=== PATIENT | female | born 1970 | race Caucasian/White ===

== ENCOUNTER 2017-07-23 13:37 | Emergency (ER) | payer MEDICARE, OTHER ==
[~2017-07-23] VITALS: Ht 167.6 cm; Wt 84.0 kg
[~2017-07-23 13:37] MED LIST: SUCR1ORA2 PO
[2017-07-23 15:35] LABS: BASOPHILS % (AUTO) 0.6 % (0-1); EOSINOPHILS # (AUTO) 0.1 X10'3 (0-0.9); HEMATOCRIT 26.6 % (35.0-45.0); HEMOGLOBIN 8.4 g/dl (12.0-16.0); MEAN CORPUSCULAR HEMOGLOBIN 20.2 PG (27.0-31.0); MEAN CORPUSCULAR HGB CONC 31.5 % (33.0-36.5); MEAN CORPUSCULAR VOLUME 64.2 FL (78-98); MEAN PLATELET VOLUME 7.4 FL (7.4-10.4); MONOCYTES # (AUTO) 0.3 X10'3 (0-0.9); MONOCYTES % (AUTO) 4.7 % (2-12); NEUTROPHILS % (AUTO) 55.7 % (42-75); PLATELET COUNT 524 X10'3 (140-440); RED BLOOD COUNT 4.15 X10'6 (4.20-5.60); RED CELL DISTRIBUTION WIDTH 21.2 % (11.5-14.5); WHITE BLOOD COUNT 5.3 X10'3 (4.5-11.0)
[2017-07-23 15:53] LABS: ALANINE AMINOTRANSFERASE 17 U/L (12-78); ALBUMIN 3.3 G/DL (3.4-5.0); ALBUMIN/GLOBULIN RATIO 0.8 (1.1-1.5); ALKALINE PHOSPHATASE 47 IU/L (46-116); ANION GAP 12 (8-16); ASPARTATE AMINO TRANSFERASE 14 U/L (10-37); BILIRUBIN,TOTAL 0.2 MG/DL (0.1-1.0); BLOOD UREA NITROGEN 19 MG/DL (7-18); BUN/CREATININE RATIO 21.6 (6.6-38.0); CALCIUM 8.7 MG/DL (8.5-10.1); CHLORIDE 110 MMOL/L (99-107); CREATININE 0.88 MG/DL (0.40-0.90); GLUCOSE 81 MG/DL (70-104); POTASSIUM 3.7 MMOL/L (3.5-5.1); SODIUM 146 MMOL/L (135-145); TOTAL CARBON DIOXIDE 23.8 MMOL/L (24-32); TOTAL PROTEIN 7.2 G/DL (6.4-8.2); eGFR 69 ML/MIN
[2017-07-23 16:31] LABS: ANISOCYTOSIS 3+; MICROCYTOSIS 2+
[2017-07-23 16:33] LABS: ELLIPTOCYTES 1+; HYPOCHROMASIA 2+; SCHISTOCYTES FEW; TARGET CELLS 1+; TEAR DROP CELLS FEW
[2017-07-23] MEDS ORDERED: morphine 4 MG/ML inj SYRINge IV ONE ×2 (16:40→16:55)
[2017-07-23 16:44] LABS: PLATELET ESTIMATE INCREASED
[2017-07-23] MEDS ORDERED: ondansetron/PF 4mg/2ml inj IV ONE (16:55)
[2017-07-23 16:58] LABS: LIPASE 171 U/L (73-393)
[2017-07-23] MEDS ORDERED: iohexol 300mg/ml 100ml inj. ONE (17:00)
[2017-07-23 19:56] VITALS: BP 157/85
[2017-07-23] MEDS ORDERED: OXYC-150 PO (20:01)
== END 2017-07-23 20:12 | disposition home or self-care (01) ==
LOC: ER 13:38
DX: D64.9 Anemia, unspecified (principal); R10.32 Left lower quadrant pain; G89.29 Other chronic pain; Z90.49 Acquired absence of other specified parts of digestive tract; Z98.84 Bariatric surgery status; Z88.1 Allergy status to other antibiotic agents; Z79.899 Other long term (current) drug therapy
CPT/HCPCS: 36415; 74177; 80053; 83605; 83690; 85025; 93005; 96374; 96375; 99285; J2270; J2405; Q9967; 84439; 84443

== ENCOUNTER 2018-09-17 18:42 | Inpatient (IN) | payer BC ==
[~2018-09-17] VITALS: Ht 167.6 cm; Wt 68.0 kg
[~2018-09-17 18:42] MED LIST changes: +OXYC-150 PO
[2018-09-17] MEDS ORDERED: normal saline 1000ML IV soln IVB ONE (20:20)
[2018-09-17] MEDS ORDERED: ondansetron/PF 4mg/2ml inj IV ONE (20:20)
[2018-09-17] MEDS ORDERED: piperacillin/tazo 3.375gm/50ml 50 ML IV ONE (20:20)
[2018-09-17] MEDS ORDERED: vancomycin/NS 1 GM ADD-VANTAGE 250 ML IV ONE (20:20)
[2018-09-17] MEDS: morphine 4 MG/ML inj SYRINge IV PRN ×2 (20:45→21:56)
[2018-09-17 20:46] LABS: BASOPHILS % (AUTO) 0.4 % (0-1); EOSINOPHILS # (AUTO) 0.2 X10'3 (0-0.9); EOSINOPHILS % (AUTO) 1.3 % (0-6); HEMOGLOBIN 12.2 g/dl (12.0-16.0); LYMPHOCYTES # (AUTO) 1.1 X10'3 (1.1-4.8); LYMPHOCYTES % (AUTO) 8.6 % (21-51); MEAN CORPUSCULAR HEMOGLOBIN 29.5 PG (27.0-31.0); MEAN CORPUSCULAR VOLUME 89.5 FL (78-98); MEAN PLATELET VOLUME 6.9 FL (7.4-10.4); MONOCYTES % (AUTO) 7.8 % (2-12); NEUTROPHILS # (AUTO) 10.8 X10'3 (1.8-7.7); NEUTROPHILS % (AUTO) 81.9 % (42-75); PLATELET COUNT 321 X10'3 (140-440); RED BLOOD COUNT 4.13 X10'6 (4.20-5.60); RED CELL DISTRIBUTION WIDTH 14.4 % (11.5-14.5); WHITE BLOOD COUNT 13.2 X10'3 (4.5-11.0)
[2018-09-17] MEDS ORDERED: diphenhydrAMINE 50 mg/ml inj IV ONE (20:55)
[2018-09-17 20:56] LABS: ALANINE AMINOTRANSFERASE 43 U/L (12-78); ALBUMIN 2.9 G/DL (3.4-5.0); ALBUMIN/GLOBULIN RATIO 0.7 (1.1-1.5); ALKALINE PHOSPHATASE 54 IU/L (46-116); ANION GAP 6 (8-16); ASPARTATE AMINO TRANSFERASE 27 U/L (10-37); BILIRUBIN,TOTAL 0.2 MG/DL (0.1-1.0); BLOOD UREA NITROGEN 14 MG/DL (7-18); BUN/CREATININE RATIO 18.7 (6.6-38.0); CALCIUM 8.8 MG/DL (8.5-10.1); CHLORIDE 105 MMOL/L (99-107); CREATININE 0.75 MG/DL (0.40-0.90); GLUCOSE 111 MG/DL (70-104); POTASSIUM 3.9 MMOL/L (3.5-5.1); SODIUM 139 MMOL/L (135-145); TOTAL CARBON DIOXIDE 28.2 MMOL/L (24-32); TOTAL PROTEIN 7.1 G/DL (6.4-8.2); eGFR 82 ML/MIN
[2018-09-17 21:36] LABS: CLARITY,URINE CLEAR (Clear); COLOR,URINE YELLOW (Yellow); GLUCOSE, URINE NEGATIVE (Neg); KETONES,URINE NEGATIVE (Neg); LEUKOCYTE ESTERASE ,URINE NEGATIVE (Neg); NITRITES, URINE NEGATIVE (Neg); OCCULT BLOOD,URINE NEGATIVE (Neg); PH,URINE 6.5 (4.8-8.0); PROTEIN,URINE TRACE mg/dl (Neg)
[2018-09-17] MEDS ORDERED: HYDROcodone/acetaminophen 5mg/325mg tablet PO PRN (21:40)
[2018-09-17] MEDS ORDERED: magnesium 2GM in 50ml NS 50 ML IV PRN (21:40)
[2018-09-17] MEDS ORDERED: potassium CL 10mEq/100ml bag 100 ML IV PRN (21:40)
[2018-09-17] MEDS ORDERED: morphine 2 MG/ML inj. syringe IV PRN ×2 (21:40)
[2018-09-17] MEDS ORDERED: magnesium 4gm in 100ml NS 100 ML IV PRN (21:40)
[2018-09-17] MEDS ORDERED: potassium Cl 20 mEq SR tablet PO PRN ×2 (21:40)
[2018-09-17] MEDS ORDERED: acetaminophen 325mg tablet PO PRN ×2 (21:40)
[2018-09-17] MEDS ORDERED: magnesium hydroxide 30ml (MOM) UD suspension PO PRN (21:40)
[2018-09-17] MEDS ORDERED: ondansetron/PF 4mg/2ml inj IV PRN (21:40)
[2018-09-17] MEDS ORDERED: potassium Cl 40MEQ/NS 500ml 500 ML IV PRN (21:40)
[2018-09-17] MEDS ORDERED: normal saline 1000ml 1,000 ML IV ONE (21:40)
[2018-09-17] MEDS ORDERED: magnesium Cl slow-release 64mg tablet PO PRN (21:40)
[2018-09-17] MEDS ORDERED: mag hydrox/Alum hydrox/simeth 30ml oral suspension PO PRN (21:40)
[2018-09-17 21:42] LABS: UA COLLECTION TYPE CLN CATCH MIDSTREAM
[2018-09-17 21:43] LABS: BACTERIA,URINE FEW /HPF (Neg); MUCUS STRANDS FEW /LPF (Neg); RBC,URINE 0-2 /HPF (0-2); SQUAMOUS EPITHELIAL CELL,UR FEW /LPF (FEW)
--- NOTE | 2018-09-17 22:52 | NUR ---
Received report from GARRY Crocker from ER, pending arrival to floor.
[2018-09-17] MEDS ORDERED: GABA-530 PO (22:58)
[2018-09-17] MEDS ORDERED: CLON0.2T2 (23:21)
[2018-09-17] MEDS ORDERED: NABU750T2 PO (23:21)
[2018-09-17] MEDS ORDERED: ESCI20TA38 (23:21)
[2018-09-17] MEDS ORDERED: CLIN300C56 (23:21)
[2018-09-17] MEDS ORDERED: HYDR-3973 (23:21)
[2018-09-17] MEDS ORDERED: GABA800T11 PO (23:21)
[2018-09-17 23:57] VITALS: BP 140/82
--- NOTE | 2018-09-18 00:35 | NUR ---
As I was talking to patient about her past medical history. I observed patient picking at her knee with tweezers where her cellulitis is currently at. Patient says she has salt coming out of her skin. Patient has multiple pick [place] all over body. I educated patient about germs and using the tweezers she has could be the source of her infection and germ getting assess to her skin causing her infection and her tweezers may be clean but they are not sterile and she should not use them to pick her knee. As I was walking away I noted to witness her continued to pick at her knee. Informed MD as he walked by her room. He said he was aware of her doing this.
[2018-09-18] MEDS: piperacillin/tazo 3.375gm/50ml 50 ML IV SCH ×3 (03:29→20:37)
[2018-09-18] MEDS: HYDROcodone/acetaminophen 10/325mg tab PO PRN ×5 (04:56→20:34)
[2018-09-18 06:00] VITALS: BP 111/69
[2018-09-18 06:14] LABS: BASOPHILS % (AUTO) 0.4 % (0-1); EOSINOPHILS # (AUTO) 0.2 X10'3 (0-0.9); EOSINOPHILS % (AUTO) 2.2 % (0-6); HEMATOCRIT 33.5 % (35.0-45.0); HEMOGLOBIN 11.2 g/dl (12.0-16.0); LYMPHOCYTES # (AUTO) 1.5 X10'3 (1.1-4.8); LYMPHOCYTES % (AUTO) 14.5 % (21-51); MEAN CORPUSCULAR HEMOGLOBIN 29.7 PG (27.0-31.0); MEAN CORPUSCULAR HGB CONC 33.4 g/dL (33.0-36.5); MEAN CORPUSCULAR VOLUME 88.8 FL (78-98); MEAN PLATELET VOLUME 7.1 FL (7.4-10.4); MONOCYTES # (AUTO) 0.8 X10'3 (0-0.9); MONOCYTES % (AUTO) 7.7 % (2-12); NEUTROPHILS # (AUTO) 7.9 X10'3 (1.8-7.7); NEUTROPHILS % (AUTO) 75.2 % (42-75); PLATELET COUNT 305 X10'3 (140-440); RED BLOOD COUNT 3.77 X10'6 (4.20-5.60); RED CELL DISTRIBUTION WIDTH 14.4 % (11.5-14.5); WHITE BLOOD COUNT 10.5 X10'3 (4.5-11.0)
[2018-09-18 06:28] LABS: ALBUMIN 2.3 G/DL (3.4-5.0); ANION GAP 6 (8-16); BLOOD UREA NITROGEN 9 MG/DL (7-18); BUN/CREATININE RATIO 13.4 (6.6-38.0); CALCIUM 8.4 MG/DL (8.5-10.1); CHLORIDE 108 MMOL/L (99-107); CREATININE 0.67 MG/DL (0.40-0.90); GLUCOSE 89 MG/DL (70-104); MAGNESIUM 1.9 MG/DL (1.5-2.4); SODIUM 140 MMOL/L (135-145); TOTAL CARBON DIOXIDE 26.5 MMOL/L (24-32); eGFR > 90 ML/MIN
--- NOTE | 2018-09-18 06:31 | NUR ---
Problems reprioritized. Patient report given, questions answered & plan of care reviewed with GARRY Faye.
--- NOTE | 2018-09-18 06:42 | NUR ---
Patient in room [facility]TH[facility] 4006. I have received report from Eva Sparrow RN and had the opportunity to ask questions and assume patient care.
[2018-09-18] MEDS ORDERED: vancomycin/NS 1 GM ADD-VANTAGE 250 ML IV SCH (08:00)
[2018-09-18] MEDS: K and/or MAG REPLACEMENT MC SCH (08:00)
[2018-09-18] MEDS: NABUMETONE PO SCH (08:00)
[2018-09-18] MEDS: gabapentin 400mg capsule PO SCH ×4 (08:58→20:33)
[2018-09-18] MEDS: enoxaparin 40mg/0.4ml syringe SQ SCH (08:59)
[2018-09-18] MEDS ORDERED: iohexol 300mg/ml 100ml inj. ONE (09:29)
[2018-09-18 10:00] VITALS: BP 118/68
--- NOTE | 2018-09-18 13:46 | NUR ---
Malnutrition consult: Pt seen at bedside with daughter listening via speaker on telephone. Pt states she hasn't had any wt loss that she's concerned about however states her family feels like she has lost a lot of weight. Daughter reports pt weighed around 180# sometime around February, current documented wt is 150# using chair scale. This is non-severe wt loss of 11% in 7 months if pt truly with wt loss. Pt reports UBW 150#. Pt documented with 100% PO intake at breakfast and eating a sandwich during RD visit. Pt reports usual meal pattern at home of 4-8 meals/day with 300 kcal each meal and reports a good appetite. Pt with LLE 3+ edema and with no visible fat or muscle wasting. Pt currently lacks a minimum of two qualifying criteria for malnutrition. Pt reports difficulty swallowing at times however denies BSS with [employer]. Pt reports seeing an ST 4 years ago with recommendations to take her time while eating. Pt with no visible difficulties eating during RD visit. Pt admit with cellulitis, written and verbal high protein education with RD contact information provided. Will continue to follow. Addendum: 09/18/18 at [address] Amended: Links added.
--- NOTE | 2018-09-18 15:58 | NUR ---
PAGER ID: [phone] MESSAGE: [phone] Robyn Cope. Patient very itchy, Can we order Benadryl? Patient is asking if doctor will see her today. Neyda [id number]
[2018-09-18] MEDS: diphenhydrAMINE 25mg capsule PO PRN (16:43)
[2018-09-18] MEDS: vancomycin/NS 1 GM ADD-VANTAGE 250 ML IV SCH (17:07)
[2018-09-18 18:00] VITALS: BP 156/75
--- NOTE | 2018-09-18 18:21 | NUR ---
Problems reprioritized. Patient report given, questions answered & plan of care reviewed with Presley CASTAÑEDA.
[2018-09-18] MEDS: lactobacillus rhamnosus 10,000 MMU CELLS/CAPSULE PO SCH (20:30)
[2018-09-18] MEDS ORDERED: LORazepam 0.5 MG tablet PO PRN (22:15)
[2018-09-19] VITALS (19 sets, daily range): BP systolic 121–147; BP diastolic 72–100
[2018-09-19] MEDS: vancomycin/NS 1 GM ADD-VANTAGE 250 ML IV SCH ×2 (01:08→10:03)
[2018-09-19] MEDS: HYDROcodone/acetaminophen 10/325mg tab PO PRN ×4 (01:09→20:10)
[2018-09-19] MEDS: piperacillin/tazo 3.375gm/50ml 50 ML IV SCH ×3 (05:52→20:11)
--- NOTE | 2018-09-19 06:10 | NUR ---
Patient in room [facility]TH[facility] 4006. I have received report from Presley CASTAÑEDA and had the opportunity to ask questions and assume patient care.
[2018-09-19 06:47] LABS: BASOPHILS # (AUTO) 0.1 X10'3 (0-0.2); BASOPHILS % (AUTO) 1.1 % (0-1); EOSINOPHILS # (AUTO) 0.3 X10'3 (0-0.9); HEMATOCRIT 35.8 % (35.0-45.0); LYMPHOCYTES # (AUTO) 1.6 X10'3 (1.1-4.8); LYMPHOCYTES % (AUTO) 16.9 % (21-51); MEAN CORPUSCULAR HEMOGLOBIN 29.6 PG (27.0-31.0); MEAN CORPUSCULAR HGB CONC 33.4 g/dL (33.0-36.5); MEAN CORPUSCULAR VOLUME 88.5 FL (78-98); MEAN PLATELET VOLUME 6.9 FL (7.4-10.4); MONOCYTES # (AUTO) 0.8 X10'3 (0-0.9); MONOCYTES % (AUTO) 8.7 % (2-12); NEUTROPHILS # (AUTO) 6.7 X10'3 (1.8-7.7); NEUTROPHILS % (AUTO) 70.3 % (42-75); PLATELET COUNT 335 X10'3 (140-440); RED BLOOD COUNT 4.05 X10'6 (4.20-5.60); RED CELL DISTRIBUTION WIDTH 14.3 % (11.5-14.5); WHITE BLOOD COUNT 9.5 X10'3 (4.5-11.0)
[2018-09-19 06:57] LABS: ALBUMIN 2.2 G/DL (3.4-5.0); ANION GAP 3 (8-16); BLOOD UREA NITROGEN 12 MG/DL (7-18); BUN/CREATININE RATIO 14.1 (6.6-38.0); CALCIUM 8.4 MG/DL (8.5-10.1); CHLORIDE 107 MMOL/L (99-107); CREATININE 0.85 MG/DL (0.40-0.90); GLUCOSE 91 MG/DL (70-104); MAGNESIUM 1.9 MG/DL (1.5-2.4); POTASSIUM 4.2 MMOL/L (3.5-5.1); SODIUM 139 MMOL/L (135-145); TOTAL CARBON DIOXIDE 29.1 MMOL/L (24-32); eGFR 71 ML/MIN
[2018-09-19] MEDS: NABUMETONE PO SCH (08:00)
[2018-09-19] MEDS: K and/or MAG REPLACEMENT MC SCH (08:00)
[2018-09-19] MEDS: enoxaparin 40mg/0.4ml syringe SQ SCH (08:00)
[2018-09-19] MEDS ORDERED: VANCOMYCIN LEVEL IV ONE (08:30)
[2018-09-19] MEDS: lactobacillus rhamnosus 10,000 MMU CELLS/CAPSULE PO SCH ×2 (08:47→20:09)
[2018-09-19] MEDS: gabapentin 400mg capsule PO SCH ×4 (08:47→20:09)
[2018-09-19] MEDS ORDERED: sevoflurane 250ml liquid IH ONE (15:15)
[2018-09-19] MEDS ORDERED: ringers solution, lacted 1,000 ML IV SCH (15:21)
[2018-09-19] MEDS ORDERED: ondansetron/PF 4mg/2ml inj IV PRN (15:25)
[2018-09-19] MEDS ORDERED: morphine 4 MG/ML inj SYRINge IV PRN (15:25)
[2018-09-19] MEDS ORDERED: proCHLORperazine 10 MG/2 ml inj IV PRN (15:25)
[2018-09-19] MEDS ORDERED: meperidine/PF 25mg/ml syringe IV PRN ×3 (15:25)
[2018-09-19] MEDS ORDERED: fentaNYL/PF 50MCG/1 ML 2ML syringe ONE (15:30)
[2018-09-19] MEDS ORDERED: midazolam 2 mg/2 ml injection ONE (15:37)
[2018-09-19] MEDS ORDERED: propofol inj 20 ML IV ONE (15:41)
--- NOTE | 2018-09-19 16:10 | NUR ---
Received from OR via bed, accompanied by Anesthesiologist. Report received. Initial physical assessment done and recorded. LMA in on arrival, removed within [address] Cheung in attendance.
[2018-09-19] MEDS: morphine 4 MG/ML inj SYRINge IV PRN (16:29)
[2018-09-19] MEDS ORDERED: HYDROcodone/acetaminophen 10/325mg tab PO ONE (16:40)
--- NOTE | 2018-09-19 17:20 | NUR ---
Discharge criteria met, report to receiving floor. Transferred to room in stable condition.
[2018-09-19] MEDS: diphenhydrAMINE 25mg capsule PO PRN (17:36)
[2018-09-19] MEDS: VANCOmycin 1250MG/NS 250ml Bag 250 ML IV SCH (18:07)
--- NOTE | 2018-09-19 18:30 | NUR ---
Patient in room [facility]TH[facility] 4006. I have received report from Neyda CASTAÑEDA and had the opportunity to ask questions and assume patient care.
--- NOTE | 2018-09-19 18:49 | NUR ---
Problems reprioritized. Patient report given, questions answered & plan of care reviewed with Lazara CASTAÑEDA.
[2018-09-19] MEDS ORDERED: nicotine prolacrilex 2mg gum BC PRN (22:35)
[2018-09-20] MEDS: VANCOmycin 1250MG/NS 250ml Bag 250 ML IV SCH ×2 (01:14→09:59)
[2018-09-20 02:00] VITALS: BP 128/78
[2018-09-20] MEDS: HYDROcodone/acetaminophen 10/325mg tab PO PRN ×2 (02:30→08:08)
[2018-09-20] MEDS: piperacillin/tazo 3.375gm/50ml 50 ML IV SCH ×2 (03:28→13:08)
[2018-09-20 07:14] LABS: ALBUMIN 2.3 G/DL (3.4-5.0); ANION GAP 5 (8-16); BLOOD UREA NITROGEN 11 MG/DL (7-18); BUN/CREATININE RATIO 17.7 (6.6-38.0); CALCIUM 8.1 MG/DL (8.5-10.1); CHLORIDE 105 MMOL/L (99-107); CREATININE 0.62 MG/DL (0.40-0.90); GLUCOSE 81 MG/DL (70-104); MAGNESIUM 1.8 MG/DL (1.5-2.4); POTASSIUM 3.8 MMOL/L (3.5-5.1); SODIUM 139 MMOL/L (135-145); TOTAL CARBON DIOXIDE 29.1 MMOL/L (24-32); eGFR > 90 ML/MIN
[2018-09-20 07:18] LABS: BASOPHILS # (AUTO) 0.1 X10'3 (0-0.2); BASOPHILS % (AUTO) 0.7 % (0-1); EOSINOPHILS # (AUTO) 0.3 X10'3 (0-0.9); EOSINOPHILS % (AUTO) 3.6 % (0-6); HEMATOCRIT 34.9 % (35.0-45.0); HEMOGLOBIN 11.7 g/dl (12.0-16.0); LYMPHOCYTES # (AUTO) 1.3 X10'3 (1.1-4.8); LYMPHOCYTES % (AUTO) 16.1 % (21-51); MEAN CORPUSCULAR HEMOGLOBIN 29.8 PG (27.0-31.0); MEAN CORPUSCULAR HGB CONC 33.5 g/dL (33.0-36.5); MONOCYTES # (AUTO) 0.7 X10'3 (0-0.9); MONOCYTES % (AUTO) 8.6 % (2-12); NEUTROPHILS # (AUTO) 5.6 X10'3 (1.8-7.7); PLATELET COUNT 374 X10'3 (140-440); RED BLOOD COUNT 3.92 X10'6 (4.20-5.60); RED CELL DISTRIBUTION WIDTH 14.1 % (11.5-14.5); WHITE BLOOD COUNT 7.9 X10'3 (4.5-11.0)
[2018-09-20] MEDS: NABUMETONE PO SCH (08:00)
[2018-09-20] MEDS: K and/or MAG REPLACEMENT MC SCH (08:00)
[2018-09-20] MEDS: lactobacillus rhamnosus 10,000 MMU CELLS/CAPSULE PO SCH (08:07)
[2018-09-20] MEDS: gabapentin 400mg capsule PO SCH ×2 (08:08→13:08)
[2018-09-20] MEDS: enoxaparin 40mg/0.4ml syringe SQ SCH (08:09)
[2018-09-20 10:00] VITALS: BP 118/67
[2018-09-20] MEDS: morphine 4 MG/ML inj SYRINge IV PRN (10:04)
[2018-09-20] MEDS: diphenhydrAMINE 25mg capsule PO PRN (10:10)
[2018-09-20] MEDS ORDERED: LACT1CAP26 PO (11:40)
[2018-09-20] MEDS ORDERED: AMOX-422 PO (11:40)
[2018-09-20] MEDS ORDERED: DOXY100C2 PO (11:40)
[2018-09-20 12:00] VITALS: BP 118/67
[2018-09-20] MEDS ORDERED: VANCOMYCIN LEVEL IV ONE (16:30)
== END 2018-09-20 15:50 | disposition home or self-care (01) | DRG 488 ==
LOC: ER 18:42 → EDBEDREQSVC 22:07 → ORTHO 4S 22:47
PROVIDERS: ADMIT Hospitalist; ATTEND Hospitalist
PROC: 0S9D0ZZ Drainage of Left Knee Joint, Open Approach (ICD-10-PCS; principal; 2018-09-19 15:26)
DX: M70.42 Prepatellar bursitis, left knee (principal); L03.116 Cellulitis of left lower limb; L02.416 Cutaneous abscess of left lower limb; F17.210 Nicotine dependence, cigarettes, uncomplicated; F20.9 Schizophrenia, unspecified; G89.4 Chronic pain syndrome; M79.7 Fibromyalgia; Z60.2 Problems related to living alone; M54.9 Dorsalgia, unspecified; Z98.84 Bariatric surgery status; Z90.49 Acquired absence of other specified parts of digestive tract; Z79.899 Other long term (current) drug therapy
CPT/HCPCS: 96365; 96367; 96375; 96376; 99285; Z7506; 36415; 73560; 73701; 80048; 80053; 80202; 81001; 83605; 83735; 84145; 85025; 85610; 87040; 87070; 87075; 87077; 87088; 87186; 93005; A6449; A7000; G0378; J1200; J1650; J2250; J2270; J2405; J2543; J2704; J3010; J3370; J7120; Q0163; Q9967

== ENCOUNTER 2020-09-12 06:30 | Emergency (ER) | payer BC ==
[~2020-09-12] VITALS: Ht 167.6 cm; Wt 68.0 kg
[~2020-09-12 06:30] MED LIST changes: +GABA800T11 PO; +LACT1CAP26 PO; +NABU-141 PO; -OXYC-150 PO; -SUCR1ORA2 PO
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
[2020-09-12] MEDS ORDERED: aspirin 325mg tablet PO ONE (07:50)
[2020-09-12] MEDS ORDERED: ketorolac trometh. 30mg/ml inj. IV ONE (07:50)
[2020-09-12] MEDS ORDERED: ketorolac tromethamine 15mg/ml inj. IV ONE (07:55)
[2020-09-12] MEDS ORDERED: ketorolac trometh. 30mg/ml inj. IM ONE (08:10)
[2020-09-12 08:12] LABS: BASOPHILS # (AUTO) 0.1 X10'3 (0-0.2); EOSINOPHILS # (AUTO) 0.2 X10'3 (0-0.9); EOSINOPHILS % (AUTO) 1.9 % (0-6); HEMATOCRIT 33.1 % (35.0-45.0); HEMOGLOBIN 10.6 g/dl (12.0-16.0); LYMPHOCYTES # (AUTO) 1.4 X10'3 (1.1-4.8); LYMPHOCYTES % (AUTO) 17.7 % (21-51); MEAN CORPUSCULAR HEMOGLOBIN 22.2 PG (27.0-31.0); MEAN CORPUSCULAR HGB CONC 32.1 g/dL (33.0-36.5); MEAN PLATELET VOLUME 6.9 FL (7.4-10.4); MONOCYTES # (AUTO) 0.6 X10'3 (0-0.9); MONOCYTES % (AUTO) 7.9 % (2-12); NEUTROPHILS # (AUTO) 5.7 X10'3 (1.8-7.7); NEUTROPHILS % (AUTO) 71.5 % (42-75); PLATELET COUNT 367 X10'3 (140-440); RED BLOOD COUNT 4.79 X10'6 (4.20-5.60); RED CELL DISTRIBUTION WIDTH 17.8 % (11.5-14.5)
[2020-09-12 08:28] LABS: ALANINE AMINOTRANSFERASE 39 U/L (12-78); ALBUMIN 3.6 G/DL (3.4-5.0); ALKALINE PHOSPHATASE 70 IU/L (46-116); ANION GAP 11 (8-16); ASPARTATE AMINO TRANSFERASE 39 U/L (10-37); BILIRUBIN,TOTAL 0.3 MG/DL (0.1-1.0); BLOOD UREA NITROGEN 15 MG/DL (7-18); BUN/CREATININE RATIO 19.2 (6.6-38.0); CALCIUM 8.7 MG/DL (8.5-10.1); CHLORIDE 108 MMOL/L (99-107); CREATININE 0.78 MG/DL (0.40-0.90); GLUCOSE 91 MG/DL (70-104); POTASSIUM 3.3 MMOL/L (3.5-5.1); SODIUM 145 MMOL/L (135-145); TOTAL CARBON DIOXIDE 25.8 MMOL/L (24-32); TOTAL PROTEIN 7.3 G/DL (6.4-8.2); eGFR 78 ML/MIN
[2020-09-12 08:35] LABS: ETHANOL < 0.010 GM/DL (0.0-0.010); MAGNESIUM 2.2 MG/DL (1.5-2.4)
[2020-09-12] MEDS ORDERED: potassium Cl 20 mEq SR tablet PO STA (09:12)
[2020-09-12 09:30] LABS: PLATELET ESTIMATE NORMAL
[2020-09-12 09:31] LABS: HYPOCHROMASIA 1+; POIKILOCYTOSIS 1+
[2020-09-12 09:32] LABS: ELLIPTOCYTES FEW; MICROCYTOSIS 2+
[2020-09-12 09:33] LABS: ANISOCYTOSIS 1+
[2020-09-12] MEDS ORDERED: HYDR-3965 PO (09:48)
[2020-09-12 09:51] LABS: URINE AMPHETAMINE SCREEN POSITIVE (Neg); URINE BARBITUATE SCREEN NEGATIVE (Neg); URINE BENZODIAZEPINES SCREEN NEGATIVE (Neg); URINE CANNABINOID SCREEN NEGATIVE (Neg); URINE COCAINE SCREEN NEGATIVE (Neg); URINE METHADONE SCREEN NEGATIVE (Neg); URINE OPIATE SCREEN NEGATIVE (Neg); URINE PHENCYCLIDINE SCREEN NEGATIVE (Neg)
[2020-09-12 10:00] VITALS: BP 170/105
== END 2020-09-12 10:02 | disposition home or self-care (01) ==
LOC: ER 06:31
DX: R07.89 Other chest pain (principal); R05 Cough; G89.29 Other chronic pain; F20.9 Schizophrenia, unspecified; Z90.49 Acquired absence of other specified parts of digestive tract; Z98.890 Other specified postprocedural states; Z60.2 Problems related to living alone; Z88.1 Allergy status to other antibiotic agents; Z79.899 Other long term (current) drug therapy; Y09 Assault by unspecified means
CPT/HCPCS: 70450; 71045; 72125; 80053; 80305; 80320; 83735; 83880; 84484; 85008; 85025; 93005; 96372; 99285; J1885